=== PATIENT | male | born 1955 | race Caucasian/White ===

== ENCOUNTER 2017-09-20 23:33 | Emergency (ER) | payer OTHER ==
[~2017-09-20] VITALS: Ht 179 cm; Wt 99.8 kg
[~2017-09-20 23:33] MED LIST: PREDNICOT20 MG PO; VICODIN ES 7501 TAB PO
[2017-09-21] MEDS ORDERED: IBU800 MG PO (00:22)
[2017-09-21] MEDS ORDERED: TYLENOL325 M1 PO (00:22)
== END 2017-09-21 00:48 | disposition home or self-care (01) ==
LOC: ED 23:33
DX: S39.011A Strain of muscle, fascia and tendon of abdomen, initial encounter (principal); X58.XXXA Exposure to other specified factors, initial encounter; Y93.89 Activity, other specified; Y92.89 Other specified places as the place of occurrence of the external cause; Y99.8 Other external cause status

== ENCOUNTER 2022-06-30 11:06 | Emergency (ER) | payer MEDICARE, BC ==
[~2022-06-30 11:06] MED LIST changes: +IBU800 MG PO; +TYLENOL325 M1 PO
== END 2022-06-30 12:56 | disposition left against medical advice (07) ==
LOC: ED 11:06
DX: Z53.21 Procedure and treatment not carried out due to patient leaving prior to being seen by health care provider (principal)